=== PATIENT | female | born 1975 | race Caucasian/White ===

== ENCOUNTER → 2018-09-04 13:59 | Outpatient (CLI) | payer BC, SELFPAY ==
--- NOTE | 2018-09-04 14:06 | XR_ITS ---
XR knee RT 4V HISTORY: Right knee pain ITS.REASON: ap, lateral, sunrise, dumont, weightbearing ORDERING PHYSICIAN: Estela Hancock MD PATIENT AGE: 43 years COMPARISON: None FINDINGS: There are mild osteoarthritic changes of the medial compartment and patellofemoral joint. There is some cortical irregularity involving the posterior patellar cortex medially as seen on the sunrise view and could represent a small osteochondral defect. No other significant anomalies are evident. Small knee joint effusion is suspected IMPRESSION: Mild osteoarthritis with possible small osteochondral defect along the posterior patella medially
== END ==
PROVIDERS: PCP Family Medicine; Visit Provider Orthopaedic Surgery
DX: M25.561 Pain in right knee (principal)
CPT/HCPCS: 73564

== ENCOUNTER → 2018-12-06 09:23 | Outpatient (CLI) | payer BC, SELFPAY ==
--- NOTE | 2018-12-06 09:40 | XR_ITS ---
XR knee RT 4V HISTORY: ITS.REASON: Rt knee pain ORDERING PHYSICIAN: Estela Hancock MD PATIENT AGE: 43 years COMPARISON: None FINDINGS: There are mild tricompartmental osteoarthritic changes slightly greater at the medial compartment and patellofemoral joint. No fracture or dislocation. No lytic or blastic change. There may be a small osteochondral defect along the medial aspect of the patella is seen on the sunrise view as before. IMPRESSION: No change mild osteoarthritis of the right knee
== END ==
PROVIDERS: PCP Family Medicine; Visit Provider Orthopaedic Surgery
DX: M25.561 Pain in right knee (principal)
CPT/HCPCS: 73564

== ENCOUNTER → 2018-12-18 15:08 | Outpatient (CLI) | payer BC, SELFPAY ==
--- NOTE | 2018-12-18 15:09 | MR_ITS ---
MR knee RT wo con HISTORY: Right knee pain, change and locking up, instability ITS.REASON: knee pain ORDERING PHYSICIAN: Estela Hancock MD PATIENT AGE: 43 years Comparison: 12/06/2018 TECHNIQUE: Standard multiplanar multiecho sequences are performed without contrast. FINDINGS: Cruciate ligaments are unremarkable. The medial collateral ligament has an unremarkable appearance. There is some thickening of the lateral collateral ligament. This is nonspecific and could be due to ligamentous sprain. A definite tear is not identified. The patellar tendon and quadriceps tendon are intact. No evidence of meniscal tear. There are mild osteoarthritic changes of the medial and lateral compartment and patellofemoral joint. There is some minimal thinning with slight increased T2 signal of the patellar cartilage. There is a small knee joint effusion. No fracture or dislocation. No bone bruise or bone marrow edema. IMPRESSION: 1. Mild thickening of the lateral collateral ligament complex nonspecific but may be seen with ligamentous sprain. 2. Mild chondromalacia patella. 3. Mild osteoarthritic changes with small knee joint effusion
== END ==
PROVIDERS: PCP Family Medicine; Visit Provider Orthopaedic Surgery
DX: M25.561 Pain in right knee (principal)
CPT/HCPCS: 73721

== ENCOUNTER 2024-04-08 12:22 | Emergency (ER) | payer BC, SELFPAY ==
[2024-04-08 12:41] VITALS: BP 125/70; PULSE 78; RESP 18; TEMP 36.9; O2SAT 97; BMI 42.2
[2024-04-08 12:52] LABS: UTC Strep Screen (Rapid) Negative (Negative)
[2024-04-08 12:53] LABS: UTC Influenza A Antigen Negative (Negative); UTC Influenza B Antigen Negative (Negative)
--- NOTE | 2024-04-08 13:25 | ED_ITS ---
Discharge Plan Disposition Patient Disposition: Home, Self-Care Condition: Good Prescriptions Prescriptions: New amoxicillin 875 mg tablet 875 mg PO Q12H Qty: 20 0RF benzonatate 100 mg capsule 100 mg PO TIDP PRN (Reason: Cough) Qty: 30 0RF methylprednisolone 4 mg Tablets,Dose Pack 4 mg PO DIRECTED 6 Days Qty: 21 0RF Rx Instructions: Take 1 pack as directed for 6 days Referrals Follow up/Referrals: Rasta Alexandre [Primary Care Provider] - See instructions Activity Restrictions/Add. Instructions Additional Instructions/Restrictions: Drink plenty of fluids. Take tylenol or ibuprofen for pain or fever. Take the medications as directed. Follow up with your regular doctor. GO TO THE ER FOR ANY WORSENING SYMPTOMS Clinical Impressions Clinical Impression: Pharyngitis, Acute viral syndrome Instructions Patient Instructions: DI for Pharyngitis/Tonsillopharyngitis -- Adult Print Language Print Language: Mauritanian Discharge ED Provider: Jimy Francisco [facility] General Stated complaint: sore throat, cough, fever, body aches Mode of Arrival: Ambulatory Source of Information: Patient Time Seen by Provider: 04/08/24 13:25 Description of Symptoms (Recalled from Triage Doc. by RN): SORE THROAT, BODY AC HES, FEVER HEENT Symptoms (Recalled from RN notes): Yes Resp Symptoms (Recalled from RN notes): No Skin Symptoms (Recalled from RN notes): No MS Symptoms (Recalled from RN notes): No Functional Status (Recalled from RN notes): WNL Related Data Previous Rx's ?Medication ?Instructions ?Recorded amoxicillin 875 mg tablet 875 mg PO Q12H #20 tabs 04/08/24 benzonatate 100 mg capsule 100 mg PO TIDP PRN Cough #30 caps 04/08/24 methylprednisolone 4 mg tablets in 4 mg PO DIRECTED 6 days #21 tabs 04/08/24 a dose pack Allergies Allergy/AdvReac Type Severity Reaction Status Date / Time Sulfa (Sulfonamide Allergy Unknown Verified 02/20/19 11:14 Antibiotics) Worker's Comp Is this a Worker's Comp case?: No [facility] Disclaimer: The information contained in this section may have been updated after the patient was seen, as this information can be updated by other users. Social History Smoking Status: Never smoker alcohol intake: never substance use type: denies use current occupational status: employed ROS Obtained: Yes All systems reviewed & no additional complaints except as documented Constitutional Constitutional: Reports chills and Reports fever(s) Eyes Eyes: Denies eye discharge ENT Ears, Nose, Mouth, and Throat: Reports as per HPI Cardiovascular Cardiovascular: Denies chest pain Respiratory Respiratory: Denies chest congestion and Reports cough Gastrointestinal Gastrointestingal: Reports nausea; Denies abdominal pain, constipation, cramping, diarrhea or vomiting Musculoskeletal Musculoskeletal: Denies arthralgias Integumentary/Breasts Skin/Breast: Denies rash Neurologic Neurologic: Denies paresthesias Physical Exam General General appearance: alert and in no apparent distress Head Head exam: atraumatic, normocephalic and normal inspection Eye Eye exam: Present normal appearance, PERRL and EOMI ENT ENT exam: Present mucous membranes moist and normal external ear exam Expanded ENT Exam TM/Canal exam: Bilateral TM: erythema and bulging Nose exam: Absent sinus tenderness Mouth exam: Present normal external inspection; Absent drooling Teeth exam: Present normal inspection Throat exam: Present tonsillar erythema, tonsillomegaly and tonsillar exudate Neck Neck exam: Present normal inspection, full ROM and trachea midline; Absent tenderness, meningismus or lymphadenopathy Chest Chest inspection: Present normal inspection and symmetric chest wall rise; Absent tenderness Respiratory Respiratory exam: Present normal lung sounds bilaterally; Absent respiratory distress, wheezes, stridor or accessory muscle use Cardiovascular Cardiovascular exam: Present regular rate and normal rhythm; Absent systolic murmur or diastolic murmur Abdominal Exam Abdominal exam: Present soft and normal bowel sounds; Absent distention, tenderness, guarding, rebound or rigidity Extremities Exam Extremities exam: Present normal inspection and normal capillary refill; Absent calf tenderness Back Exam Back exam: Present normal inspection and full ROM; Absent tenderness, CVA tenderness (R) or CVA tenderness (L) Neurological Exam Neurological exam: Present alert, oriented X3 and CN II-XII intact Psychiatric Psychiatric exam: Present normal affect and normal mood Skin Skin exam: Present warm, dry, intact and normal color Medical Decision Making Medical Records Medical records reviewed: No I reviewed the patient's medical records. Screening: Per USPSTF and CDC recommendations, given the prevalence of disease in our region, it is our hospital?s policy to screen for HIV and viral Hepatitis for all patients aged 18 and over and those with ongoing risk factors. Justice Inquiry Pt receiving controlled substance: No Vital Signs: 04/08/24 12:41 Temperature 98.5 F Temperature Source Oral Pulse Rate [Left Radial] 78 Respiratory Rate 18 Blood Pressure [Left Arm] 125/70 Blood Pressure Mean [Left Arm] 88 02 Sat by Pulse Oximetry 97 Lab Data Lab results reviewed: Yes I reviewed the patient's lab results. Lab Results 04/08/24 12:44: Influenza Type A Ag Negative, Influenza Type B Ag Negative, Strep Scn Rapid Clinic Negative Orders (Tests/Meds): ORDERS Category Date Time Status Strep Screen Confirmation Stat Micro 04/08/24 12:44 Received
[2024-04-08] MEDS: DEXAMETHASONE 4MG/ML 1ML VIAL 8 MG IM (13:57)
[2024-04-08] MEDS: LIDOCAINE 1% 5ML PF VIAL IM (13:57)
[2024-04-08] MEDS: cefTRIAXone 1GM VIAL 1 GM IM (13:57)
[2024-04-08 14:02] VITALS: BP 125/70; PULSE 78; RESP 18; TEMP 36.9
== END 2024-04-08 14:21 | disposition home or self-care (01) ==
PROVIDERS: Emergency Provider Nurse Practitioner Family; PCP Family Medicine
DX: J02.9 Acute pharyngitis, unspecified (principal); B34.9 Viral infection, unspecified
CPT/HCPCS: 87804; 87880; 96372; 99213; G0381; J0696; J1100

== ENCOUNTER 2025-05-16 18:42 | Emergency (ER) | payer BC, SELFPAY ==
--- NOTE | 2025-05-16 18:45 | ECG_ITS ---
APPROVED REPORT Exam: Resting ECG HR:74 bpm ECG Measurements Heart Rate 74 AXES [place] 154 P 41 QRSd 89 QRS 64 QT 363 T 9 QTc 390 Conclusion Normal sinus rhythm Normal axis Normal intervals No STEMI Electronically signed by : Basim Kim, 05/17/2025 02:01:09
[2025-05-16 18:50] VITALS: BP 135/107; PULSE 76; RESP 16; TEMP 36.6; O2SAT 96; BMI 41.3
--- OUTSIDE RECORDS SUMMARY | 2025-05-16 18:51 | XMS_ITS | Clinical Summary ---
Author Organization [facility] Address [address] [facility] [place] [address] Care Team Providers Care Agricultural Economist Name Role Phone Jeffrey Olsen MD Primary Care Provider [phone] Social History Tobacco Use Types Packs/Day Years Used Date Smoking Tobacco: Never Assessed Comments Unknown Sex and Gender Information Value Date Recorded Sex Assigned at Not on file Legal Sex Female 4:15 PM EST Gender Identity Not on file Sexual Orientation Not on file Plan of Treatment Health Maintenance Due Date Last Done Comments [facility]-Depression Screening 1974 [facility]-/Child/Adol SDOH Screenings 1974 [facility]- SDOH Screenings 1992 [facility]-Adult SDOH Screenings 1992 [facility]-Hepatitis B Vaccines (1 of 3 - 19+ 3-dose series) 1993 [facility]-Pap Smear 1995 [facility]-Cervical Cancer Screening 2004 [facility]-HPV/Cotest 2004 CT Colonography 2019 Colonoscopy 2019 FIT-DNA 2019 FIT 2019 FOBT 2019 Sigmoidoscopy 2019 [facility]-Colorectal Cancer Screening 2019 [facility]-DTaP,Tdap,and Td Vaccine s (2 - Td or Tdap) 08/11/2022 08/11/2012 [facility]-Pneumococcal Vaccine: 50 + Years (1 of 1 - PCV) 2024 [facility]-Zoster Vaccines (1 of 2) 2024 [id number] Vaccine (3 - 2024- season) 2025 07/02/2020, 06/04/2020 [facility]-Influenza Vaccine (#1) 01/21/202502/231, 03/24/2018 HPV Vaccines (No Doses Required) Completed [facility]-HIB Vaccines Aged Out No longer e ligible based on patient's age to complete this topic [facility]-Hepatitis A Vaccines Aged Out No longer eligible based on patient's age to complete this topic [facility]-IPV Vaccines Aged Out No longer e ligible based on patient's age to complete this topic [facility]-Rotavirus Vaccines Aged Out No lo nger eligible based on patient's age to complete this topic Insurance ANTH Care Teams Agricultural Economist Relationship Specialty Start Date End Date Jeffrey Olsen MD [facility] [place] [address] PCP - General Gynecology 04/04/23
--- OUTSIDE RECORDS SUMMARY | 2025-05-16 18:51 | XMS_ITS ---
Author Organization Unknown ENCOUNTERS Encounter Performer Location Date Diagnosis Diagnosis Status Emergency [facility] [address] [place] [address] [id number] Pre Admit [facility] [address] [place] [address] [id number] Pre Admit [address] [place] [address] [id number] Emergency [facility] [address] [place] [address] [id number] SOO *Note: Encounters from your own facility or health system may be excluded. Allergies, Adverse Reactions, Alerts Allergen Type Severity Identification Date Sulfa (Sulfonamide Antibiotics) drug allergy 1 [id number] Medications Name Date Quantity Days Supplied GPI Number
[2025-05-16 18:54] VITALS: BP 119/68; PULSE 80; RESP 16; O2SAT 97
[2025-05-16 19:00] VITALS: BP 119/68; PULSE 70; RESP 17; O2SAT 96
[2025-05-16 19:05] LABS: Hematocrit 42.9 % (37.0-47.0); Hemoglobin 14.0 g/dL (12.2-16.2); Immature Granulocytes % 0.2 %; Mean Corpuscular HGB Conc 32.6 g/dL (31.8-35.4); Mean Corpuscular Hemoglobin 28.6 pg (27.0-31.2); Mean Corpuscular Volume 87.7 fl (81-99); Nucleated Red Blood Cells % 0 %; Platelet Count 232 K/mm3 (142-424); Red Blood Count 4.89 M/mm3 (4.20-5.40); Red Cell Distribution Width-SD 44.0 fL; White Blood Count 5.0 K/mm3 (4.8-10.8)
[2025-05-16 19:15] LABS: Albumin Level 4.4 g/dl (3.5-5.0); Chloride 105 mmol/L (98-107)
[2025-05-16 19:16] LABS: Potassium 3.8 mmoL/L (3.5-5.1); Sodium 141 mmol/L (136-145)
[2025-05-16 19:18] LABS: Alanine Aminotransferase 24 U/L (12-78); Anion Gap 12.8 mEq/L (5-15); Aspartate Amino Transferase 32 U/L (14-36); Blood Urea Nitrogen 18 mg/dl (7-17); Carbon Dioxide 27 mmol/L (22.0-30.0); Creatinine Clearance Estimated 63 mL/min (50-200); Creatinine,Serum 1.10 mg/dl (0.52-1.04); Estimated Glomerular Filt Rate 52 ml/min (>60); GFR (African American) 63 ML/MIN (>60)
[2025-05-16 19:19] LABS: Albumin/Globulin Ratio 1.5 (1.1-1.8); Alkaline Phosphatase 65 U/L (38-126); Bilirubin,Total 0.5 mg/dl (0.2-1.3); Calcium 9.5 mg/dl (8.4-10.2); Globulin 3.0 g/dL (1.3-3.2); Glucose 97 mg/dl (74-100); Total Protein,Serum 7.4 g/dl (6.3-8.2)
[2025-05-16 19:22] LABS: Coronavirus 19, PCR Not Detected (NotDetected); Influenza B, PCR Not Detected (NotDetected)
[2025-05-16] MEDS: LACTATED RINGERS 1000ML 1,000 ML 999 ML IV (19:29)
[2025-05-16 19:35] LABS: Troponin I < 0.01 ng/ml (0.00-0.034)
[2025-05-16 19:46] LABS: D-Dimer 1.02 ug/mL (0.0-0.5)
[2025-05-16 19:57] LABS: Influenza A, PCR Detected (NotDetected)
--- NOTE | 2025-05-16 19:59 | CT_ITS ---
PROCEDURE INFORMATION: Exam: CTA Chest With Contrast Exam date and time: 05/16/2025 8:39 PM Age: 50 years old Clinical indication: Cough and shortness of breath; Additional info: D-dimer >1 TECHNIQUE: Imaging protocol: Computed tomographic angiography of the chest with contrast. Exam focused on the arteries. 3D rendering (Not supervised by radiologist): MIP and/or 3D reconstructed images were created by the technologist. Radiation optimization: All CT scans at this facility use at least one of these dose optimization techniques: automated exposure control; mA and/or kV adjustment per patient size (includes targeted exams where dose is matched to clinical indication); or iterative reconstruction. Contrast material: ISOVUE; Contrast volume: 70 ml; Contrast route: INTRAVENOUS (IV); COMPARISON: No relevant prior studies available. FINDINGS: Limitations: Mild motion artifact. Limited contrast bolus for assessment of pulmonary emboli. Pulmonary arteries: No pulmonary embolism. Aorta: Unremarkable. No aortic aneurysm. No aortic dissection. Lungs: Unremarkable. No consolidation. No masses. Pleural spaces: Unremarkable. No pneumothorax. No pleural effusion. Heart: Unremarkable. No cardiomegaly. No pericardial effusion. Mediastinal space: Calcified left hilar granulomas. Lymph nodes: Unremarkable. No enlarged lymph nodes. Bones/joints: Degenerative changes of the spine. Soft tissues: Unremarkable. IMPRESSION: No pulmonary embolism.
[2025-05-16 20:09] LABS: Hepatitis C Ab Qual. W/ RFX NEGATIVE (Negative)
[2025-05-16] MEDS: SODIUM CHLORIDE 0.9% 10ML SYR (RAD ONLY) 10 ML IV (20:48)
[2025-05-16] MEDS: IOPAMIDOL-370 (76%);100ML BOTTLE 70 ML IV (20:48)
[2025-05-16] MEDS: 0.9 % SODIUM CHLORIDE 50 ML VIAL IV (20:48)
--- NOTE | 2025-05-16 22:09 | ED_ITS ---
Discharge Plan Disposition Patient Disposition: Home, Self-Care Condition: Good Prescriptions Prescriptions: No Action amoxicillin 875 mg tablet 875 mg PO Q12H Qty: 20 0RF benzonatate 100 mg capsule 100 mg PO TIDP PRN (Reason: Cough) Qty: 30 0RF methylprednisolone 4 mg Tablets,Dose Pack 4 mg PO DIRECTED 6 Days Qty: 21 0RF Rx Instructions: Take 1 pack as directed for 6 days Referrals Follow up/Referrals: Rasta Alexandre [Primary Care Provider, Medical] - See instructions Activity Restrictions/Add. Instructions Additional Instructions/Restrictions: If you develop shortness of breath, chest pain, or decreased urinary output please return. Otherwise, please stay well hydrated. Clinical Impressions Clinical Impression: Influenza Print Language Print Language: Ivorian Discharge ED Provider: Basim Kim Adult HPI General Chief complaint: Arrhythmia/Palpitations Stated complaint: CP Time Seen by Provider: 05/16/25 18:48 Mode of Arrival: Ambulatory Source of Information: Patient Description of Symptoms (Recalled from ER Triage Doc. by RN): patient states she has had palpitations for about 3 hours. she has been on a zpak since tuesday for cough and congestion. History of Present Illness HPI narrative: This is a 50-year-old female patient, with past medical history of obesity, who is presenting to the emergency department today for evaluation of palpitations and chest tightness. The patient tells me that over the last 3 to 5 days she has been having symptoms of cough, congestion, and an overall feeling of malaise and bodyaches. She states that she took an at home flu and COVID test and these were negative. She thought that she had the common cold and has been treating herself symptomatically at home. This evening she developed some chest tightness as well as palpitations. The most concerning thing to her was the palpitations. She tells me that she has had poor oral intake and feels dehydrated. Otherwise she is not having overt chest pain, no abdominal pain, no nausea, vomiting, or diarrhea. Related Data Previous Rx's ?Medication ?Instructions ?Recorded amoxicillin 875 mg tablet 875 mg PO Q12H #20 tabs 03/23 12/13 benzonatate 100 mg capsule 100 mg PO TIDP PRN Cough #3 0 caps 04/08/24 methylprednisolone 4 mg tablets in 4 mg PO DIRECTED 6 days #21 tabs 04/08/24 a dose pack Allergies Allergy/AdvReac Type Severity Reaction Status Date / Time Sulfa (Sulfonamide Allergy Unknown Verified 02/20/19 11:14 Antibiotics) [facility] Disclaimer: The information contained in this section may have been updated after the patient was seen, as this information can be updated by other users. Social History (Updated 04/12/24 @ 15:49 by Jimy Francisco APRN) Smoking Status: Never smoker alcohol intake: never substance use type: denies use current occupational status: employed Travel in the last 8 weeks?: None Have you lived/traveled outside US in past 30 days?: No Contact w/someone who lives/traveled outside US past 30 days?: No Exposure to someone with infectious disease in past 14 days?: No Do you have a fever (greater than 100.4 F or 38 C)?: No Have you tested positive for COVID-19?: No Exposed to someone with COVID-19 in past 14 days?: No Do you have a sore throat?: No Do you have a cough?: No Do you have any weakness?: No Do you have any diarrhea?: No Are you experiencing any unusual bleeding?: No Do you have any muscle aches/pain?: No Do you have any abdominal pain?: No Are you experiencing loss of taste or smell?: No Other Medical History Have you received the Pneumonia Vaccine: No ROS Obtained: Yes Systems reviewed as appropriate & no additional complaints except as documented Physical Exam General General appearance: other (See MDM) Respiratory Respiratory exam: Present other (See MDM) Cardiovascular Cardiovascular exam: Present other (See MDM) Neurological Exam Neurological exam: Present other (See MDM) Medical Decision Making Medical Records Medical records reviewed: Yes I reviewed the patient's medical records. Screening: Per USPSTF and CDC recommendations, given the prevalence of disease in our region, it is our hospital?s policy to screen for HIV and viral Hepatitis for all patients aged 18 and over and those with ongoing risk factors. Justice Inquiry Pt receiving controlled substance: No Justice was queried for this patient: No Vital Signs: 05/16/25 18:50 05/16/25 18:54 05/16/25 19:00 Temperature 98 F Temperature Source Oral Pulse Rate 80 70 Pulse Rate [Right Radial] 76 Respiratory Rate 16 16 17 Blood Pressure 119/68 119/68 Blood Pressure [Right Arm] 135/107 H Blood Pressure Mean 85 Blood Pressure Mean [Right Arm] 116 Blood Pressure Source [Right Arm] Automatic Cuff Blood Pressure Position [Right Arm] Supine 02 Sat by Pulse Oximetry 96 97 96 Oxygen Delivery Method Room Air Room Air Lab Data Lab Results 05/16/25 18:50: WBC 5.0, RBC 4.89, Hgb 14.0, Hct 42.9, MCV 87.7, MCH 28.6, MCHC 32.6, RDW 13.6, Plt Count 232, MPV 10.3, Neut % (Auto) 35.4 L, Lymph % (Auto) 53.0 H, [place] % (Auto) 8.6, Eos % (Auto) 2.2, Baso % (Auto) 0.6, Neut # (Auto) 1.8, Lymph # (Auto) 2.7, [place] # (Auto) 0.4, Eos # (Auto) 0.1, Baso # (Auto) 0.0, D-Dimer 1.02 H, Sodium 141, Potassium 3.8, Chloride 105, Carbon Dioxide 27, Anion Gap 12.8, BUN 18 H, Creatinine 1.10 H, Estimated Creat Clear 63, Estimated GFR 52 L, Est GFR ( Amer) 63, Glucose 97, Calcium 9.5, Total Bilirubin 0.5, AST 32, ALT 24, Alkaline Phosphatase 65, Troponin I < 0.01, Total Protein 7.4, Albumin 4.4, Globulin 3.0, Albumin/Globulin Ratio 1.5, HCV Ab VI w/Rflx PCR Qn Negative, HIV Ag/Ab Combo Qual Negative 05/16/25 19:17: SARS-CoV-2 (PCR) Not detected, Influenza A Untype (PCR) Detected A, Influenza Type B (PCR) Not detected 05/16/25 18:50 05/16/25 18:50 Orders (Tests/Meds): ED MEDICATIONS Discontinued Medications Generic Name Dose Route Start Last Admin Trade Name Freq PRN Reason Stop Dose Admin Lactated Ringer's 1,000 mls @ 999 mls/hr 05/16/25 19:10 05/16/25 21:46 Lactated Ringer's 1000 Ml Bag IV 05/16/25 20:10 Infused .Q1H1M ONE Infusion Iopamidol 70 ml 05/16/25 20:47 05/16/25 20:48 Iopamidol-370 (76%);100ml Bottle IV 05/16/25 20:48 70 ml ONCE ONE Administration Sodium Chloride 10 ml 05/16/25 20:47 05/16/25 20:48 Sodium Chloride 0.9% 10ml Syr (Rad Only) IV 05/16/25 20:48 10 ml ONCE ONE Administration Sodium Chloride 50 ml 05/16/25 20:47 05/16/25 20:48 0.9 % Sodium Chloride 50 Ml Vial IV 05/16/25 20:48 50 ml ONCE ONE Administration ORDERS Category Date Time Status CT angio chest PE protocol Stat Cat Scan 05/16/25 19:59 Completed Complete Blood Count Auto Diff Stat Lab 05/16/25 18:50 Completed Comprehensive Metabolic Panel Stat Lab 05/16/25 18:50 Completed D-Dimer Stat Lab 05/16/25 18:50 Completed HIV Combo Stat Lab 05/16/25 18:50 Completed Hepatitis C Ab Qual. W/ RFX Stat Lab 05/16/25 18:50 Completed Rapid PCR Covid and Flu A/B Stat Lab 05/16/25 19:17 Completed Trop I [Troponin I] Stat Lab 05/16/25 18:50 Completed Troponin I Q3H Lab 05/16/25 22:00 Ordered Troponin I Q3H Lab 05/17/25 01:00 Ordered Medical Decision Narrative: In summary, this is a 50-year-old female patient who presented to the emergency department today for several days of viral symptoms with new onset chest tightness and palpitations this evening. The patient does not have any comorbidities that would complicate her medical management or care. She also takes no daily medications. On initial evaluation of the patient they were resting comfortably in no acute distress and nontoxic in appearance. They are hemodynamically stable, saturating well room air, and are neurologically intact. On physical examination the patient has no wheezes, rales, rhonchi, or stridor. No abdominal tenderness palpation. Oral pharyngeal exam is unremarkable. She has no lower extremity erythema or pitting edema. Differential diagnosis includes influenza A, influenza B, COVID, other viral syndrome. We have also with the patient for pneumonia. Additionally, this could be an atypical presentation of acute coronary syndrome or pulmonary embolism. Will work the patient up with a D-dimer given that she is low risk by Wells criteria. An EKG was obtained and personally turbid by me and demonstrates normal sinus rhythm at a rate of 74 bpm, normal axis, no LA prolongation, narrow QRS, no QTc prolongation. No ST ovation or depression. No overt signs of ischemia or arrhythmia. Labs were personally turbid by me and demonstrate no leukocytosis, no anemia, no significant electrolyte derangement or evidence of acute kidney injury. Troponin is less than 0.01. D-dimer is elevated greater than 1 so we will pursue further workup with a CT PE study. Additionally, the patient is positive for influenza A. CT PE study was personally interpreted by me and demonstrates no evidence of saddle pulmonary embolus. Official radiology read is in agreement states there is no acute abnormality. Patient symptoms are likely being driven by influenza. We have treated her with a liter of lactated Ringer's. She feels improved. I have encouraged adequate oral intake. We have also given return precautions. At this time all questions been answered and all parties are agreeable with the decision to discharge home. Critical Care Critical Care Time Critical Care Time: No
[2025-05-16 22:13] VITALS: BP 119/68; PULSE 70; RESP 17; TEMP 36.8; O2SAT 96
== END 2025-05-16 22:17 | disposition home or self-care (01) ==
PROVIDERS: Emergency Provider Student in an Organized Health Care Education/Training Program; PCP Family Medicine
DX: J10.1 Influenza due to other identified influenza virus with other respiratory manifestations (principal); Z88.2 Allergy status to sulfonamides; R00.2 Palpitations; R07.89 Other chest pain
CPT/HCPCS: 71275; 80053; 84484; 85025; 85378; 86803; 87389; 87636; 93005; 96360; 99284; J7120; Q9967